=== PATIENT | male | born 2005 | race African-American/Black ===

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

== ENCOUNTER 2025-01-13 15:12 | Emergency (ER) | payer BC, SELFPAY ==
[2025-01-13 15:16] VITALS: BP 115/71; PULSE 71; RESP 16; TEMP 36.2; O2SAT 99
--- NOTE | 2025-01-13 15:34 | ED_ITS ---
HPI - General Adult General Chief complaint: Skin/Abscess/Foreign Body Stated complaint: Skin Source: patient Mode of arrival: ambulatory Limitations: no limitations History of Present Illness HPI narrative: Patient presents for evaluation of a painful swollen lesion to the right side of his face for last 2 days. No fever, chills, nausea, vomiting. He is not diabetic. Denies any drainage from the affected area. No history of similar symptoms. He does not smoke. Related Data Allergies Allergy/AdvReac Type Severity Reaction Status Date / Time No Known Allergies Allergy Verified 01/13/25 15:19 Review of Systems Review of Systems: CONSTITUTIONAL: Denies fever, chills, or sweats. EYES: Denies visual changes, redness, or discharge. ENT: Denies rhinorrhea, congestion, sore throat, or otalgia. CARDIOVASCULAR: Denies chest pain, palpitations, or edema. RESPIRATORY: Denies cough or dyspnea. GASTROINTESTINAL: Denies abdominal pain, nausea, vomiting, or diarrhea. GENITOURINARY: Denies dysuria or hematuria. SKIN: Reports raised erythematous lesion to the right side of the face MUSCULOSKELETAL: Denies back pain, joint pain, or myalgia. NEUROLOGIC: Denies headache, numbness, dizziness, or weakness. PSYCHIATRIC: Denies anxiety or depression. PMFSH Past Medical History Medical History No pertinent past medical history Surgical History Surgical History No pertinent past surgical history Family History Family History Mother Family history unknown Social History Social History Alcohol intake: never Substance use: never Gender identity (if verbalized by the patient): Male Spiritual care concerns: No Exam Narrative: GENERAL: Well-appearing, well-nourished, and in no acute distress. HEAD: Normocephalic, atraumatic. EYES: PERRLA and EOMI. ENT: Nares clear, no rhinorrhea or epistaxis. Mucous membranes moist. Oropharynx without tonsillar hypertrophy exudate or other lesions. Bilateral TMs pearly jauregui nonbulging NECK: Supple. No adenopathy or masses. No carotid bruits or JVD CHEST: Clear to auscultation. No respiratory distress. No wheezes rales or rhonchi HEART: Regular rate and rhythm. No murmur heard. Normal peripheral pulses. ABDOMEN: Soft, nontender, nondistended, normal active bowel sounds. EXTREMITIES: Normal range of motion. No edema. SKIN: Approximately 5 x 3cm raised erythematous lesion to the right side of the face just inferior and lateral to the orbital floor. NEURO: No focal deficits. Alert and oriented x3. PSYCH: Normal mood and affect. Course Course Emergency Course: This is a 19-year-old male who presented for evaluation of a painful swollen lesion to the right of this phase. This appears to be an infected sebaceous cyst. I contacted [facility] plastic surgery team and spoke with Dr. Rodriguez, who recommended discharging with oral abx and follow up in clinic with them in two weeks. I encouraged patient to take his into her course of antibiotics. Advised if his symptoms worsen or moved toward his eye he should go to the emergency department. Otherwise he should follow up with Plastic surgery in clinic. Patient in agreement with plan of care Level of Care: Express Care Visit Vital Signs Vital signs: Vital Signs Temperature 36.2 C L 01/13/25 15:16 Pulse Rate 71 01/13/25 15:16 Respiratory Rate 16 01/13/25 15:16 Blood Pressure 115/71 01/13/25 15:16 Pulse Oximetry 99 01/13/25 15:16 Oxygen Delivery Room Air 01/13/25 15:16 Temperature 36.2 C L 01/13/25 15:16 Pulse Rate 71 01/13/25 15:16 Respiratory Rate 16 01/13/25 15:16 Blood Pressure 115/71 01/13/25 15:16 Pulse Oximetry 99 01/13/25 15:16 Oxygen Delivery Room Air 01/13/25 15:16 Medical Decision Making Vital Signs Vital Signs: Vital Signs Temperature 36.2 C L 01/13/25 15:16 Pulse Rate 71 01/13/25 15:16 Respiratory Rate 16 01/13/25 15:16 Blood Pressure 115/71 01/13/25 15:16 Pulse Oximetry 99 01/13/25 15:16 Oxygen Delivery Room Air 01/13/25 15:16 Temperature 36.2 C L 01/13/25 15:16 Pulse Rate 71 01/13/25 15:16 Respiratory Rate 16 01/13/25 15:16 Blood Pressure 115/71 01/13/25 15:16 Pulse Oximetry 99 01/13/25 15:16 Oxygen Delivery Room Air 01/13/25 15:16 Discharge Plan Discharge Clinical Impression: Infected sebaceous cyst Patient Disposition: Home Condition: Stable Instructions: Antibiotic Form, Cellulitis (ED), Epidermal Inclusion Cysts (ED) Additional Instructions: PLEASE CALL [facility] PLASTIC SURGERY TEAM TODAY FOR A FOLLOW-UP APPOINTMENT IN 2 WEEKS. THEY AGREE TO SEE YOU IN CLINIC THE ADDRESS THERE IS: [address] [place] [address] THE PHONE NUMBER IS: IF REDNESS AND SWELLING INCREASES OR MOVES TOWARD YOUR EYE, PLEASE GO TO THE EMERGENCY DEPARTMENT Patient Language: Kittitian Prescriptions: New sulfamethoxazole-trimethoprim [Bactrim DS] 800-160 mg tablet 1 tablet PO Q12H Qty: 20 0RF cephalexin 500 mg capsule 500 mg PO Q6H Qty: 40 0RF Follow-up/Referrals: [facility] PLAST[facility]ERY [Other] Time of Disposition: 16:03
--- OUTSIDE RECORDS SUMMARY | 2025-01-13 16:48 | XMS_ITS | Encounter Summary ---
Author Organization [facility] Address [address] [facility] [address] [place] [address] Care Team Providers Care Pododermatologist Name Role Phone Prosper Lobo MD Primary Care Provider [phone] Reason for Visit * Reason Onset Date Comments Rash 01/13/2025 Encounter Details Date Type Department Care Team (Late st Contact Info) Description 01/13/2025 Telephone [facility] [address] [place] [address] Casey Rodriguez MD [facility] [place] [address] Rash Social History Tobacco Use Types Packs/Day Years Used Date Smoking Tobacco: Never Assessed Sex and Gender Information Value Date Recorded Sex Assigned at Not on file 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 Plastic Surgery Transfer Call Documentation Transfer center call from [facility]. Mr. 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 Has not been substantially growing. No history of trauma and denies any fevers or chills. On physical exam the contacting provider states that it is similar to a infected sebaceous cyst. Photos provided by outside provider Upon review of photos, lesion does not appear to be a sebaceous cyst as there is no central punctum. May be folliculitis vs other infectious etiology Recommend: -Keflex x7 days -f/u with Dr. Panchal in 2 weeks Casey Rodriguez [facility] documented in this encounter Plan of Treatment Not on file documented as of this encounter Visit Diagnoses Not on filedocumented in this encounter Care Teams Pododermatologist Relationship Specialty Start Date End Date Prosper Lobo MD [address] [place] [address] PCP - General 02/05/10 documented as of this encounter
--- OUTSIDE RECORDS SUMMARY | 2025-01-13 16:48 | XMS_ITS | Clinical Summary ---
Author Organization [facility] [employer] Address [address] [place] [address] Care Team Providers Care Wildlife Biologist Name Role Phone Prosper Lobo MD Primary Care Provider [phone] Source Comments [facility],non-owned Affiliates and Associated Physician Practices is amultiple site organization consisting of ambulatory clinics and hospital sitesin [place] and [place]. This disclosure is being madepursuant to the Care Everywhere program and may not contain all information available regarding this patient. Last updated 17.[facility] [employer] Allergies No known active allergies Medications * [...] Phimosis/redundant prepuce 02/14/2010 Balanitis 02/14/2010 Primary snoring Encounters Date Type Department Care Team Description 01/13/2025 Telephone [facility] [address] [place] [address] Casey Rodriguez MD Rash from Last 3 Months Family History Medical History Relation Name Comments Asthma Mother Seizures Mother Sinusitis Mother Skin problem Mother warts now resol dev Strep throat Mother Relation Name Status Comments Mother Social History Tobacco Use Types Packs/Day Years Used Date Smoking Tobacco: Never Assessed Sex and Gender Information Value Date Recorded Sex Assigned at Not on file 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 Gender Identity Not on file Sexual Orientation [...] 3:44 PM CDT Height 124.6 cm (4' 1.06) 12/24/2012 3:44 PM CD T Body Mass Index 15.65 12/24/2012 3:44 PM CDT Body Mass Index Percentile 53.75% 12/24/2012 3:4 4 PM CDT Growth Chart: CDC (Boys, 2-2 0 Years) Plan of Treatment Health Maintenance Due Date Last Done Comments HIV SCREENING 2020 HPV VACCINE (1 - Male 3-dose series) 2020 MENINGOCOCCAL (Group B) VACC INE SHARED DECISION-MAKING (1 of 2 - Standard) 2021 HEPATITIS C SCREENING 12/05/2023 DEPRESSION SCREENING 03/20/2024 COVID-19 VACCINE (1 - 2023-2 5 season) 2024 INFLUENZA VACCINE (#1) 2024 DTAP/TDAP/TD VACCINES (1 - Tdap) 2024 HEPATITIS B VACCINE (1 of 3 - 19+ 3-dose series) 2024 ZOSTER VACCINE (1 of 2) 12/10/2055 HIB VACCINE Aged Out No longer eligi ble based on patient's age to complete this topic MENINGOCOCCAL GROUPS A/C/Y/W VACCINE Aged Out No longer eligible b ased on patient's age to complete this topic PNEUMOCOCCAL VACCINE Aged Out No long er eligible based on patient's age to complete this topic Insurance [place]ICAID - [place] [facility] Care Teams Wildlife Biologist Relationship Specialty Start Date End Date Prosper Lobo MD [address] [place] [id number] PCP - General 02/05/10
--- OUTSIDE RECORDS SUMMARY | 2025-01-13 16:48 | XMS_ITS | Patient Health Record ---
Author Organization [facility] Address [address] [place] [address] Care Team Providers Care Ingredient Mixer Name Role Phone Peggy Ortega Primary Care Provider Allergies No Known Allergies Reason For Referral No Information Medications Medication SIG (Take, Route, Fr equency, Duration) Notes Start Date End Date Status FLUoxetine HCl 10 MG 1 capsule Orally On ce a day; Duration: 90 days 08/30/2023 Active Vyvanse 30 MG 1 capsule in the mor kit Orally Once a day; Duration: 30 days 08/30/2023 Ac tive FLUoxetine HCl 20 MG 1 capsule Orally On ce a day; Duration: 90 days Active Vyvanse 30 MG 1 capsule in the mor kit Orally Once a day; Duration: 30 days 10/28/2023 Ac tive Vyvanse 30 MG 1 capsule in the mor kit Orally Once a day; Duration: 30 days 09/28/2023 Ac tive Vyvanse 30 MG 1 capsule in the mor kit Orally Once a day; Duration: 30 days 05/16/2023 Ac tive Social History Sex Assigned At : Social History Observation Description Sex Assigned At Male Problems Problem Type SNOMED Code ICD Code Onset Dates Problem Status W/U Status Risk Notes Problem Depression (279359116) Depression (F32.9) Active confirmed Problem Attention deficit disorder (12306601) ADD (attention deficit disorder) (F90.0) Active confirmed Plan Of Treatment No Information Insurance Providers Payer Name Payer Address Payer Phone Subscriber Number Group Number Insured Name Patient Relationship to Insured Coverage Start Date Coverage End Date [facility] [address] [place] [address] [id number] Obie Chris Self - patient is the insured 2 MEDICAID [address] [place] [address] [id number] Obie Mesa Self - patient is the insured 2 Medical (General) History Medical History History ICD Code attention deficit disorder attention deficit hyperactivity disorder depression anxiety
== END 2025-01-13 16:05 | disposition home or self-care (01) ==
PROVIDERS: Emergency Provider Nurse Practitioner
DX: L72.3 Sebaceous cyst (principal)
CPT/HCPCS: 99213; G0463